=== PATIENT | female | born 1975 | race Caucasian/White ===

== ENCOUNTER 2022-01-10 07:00 | Outpatient (RCR) | payer OTHER, SELFPAY | END 2022-04-15 14:22 | disposition home or self-care (01) | LOC: HO.PTCHIC 07:00 | PROVIDERS: PCP Internal Medicine; Visit Provider Advanced Practice Midwife | DX: N39.46 Mixed incontinence (principal) | CPT/HCPCS: 97112; 97140; 97161 ==